=== PATIENT | male | born 1990 | race Caucasian/White ===

== ENCOUNTER → 2017-02-24 | Outpatient (CLI) | payer OTHER ==
--- NOTE | 2017-02-24 13:30 | DIAGNOSTIC IMAGING REPORT ---
BILATERAL LOWER EXTREMITY VENOUS DOPPLER HISTORY: PAIN IN RT LEG, acute right lower cavity swelling and pain. COMPARISON STUDY: None. FINDINGS: There is normal compressibility, flow, and augmentation within the right lower extremity deep venous system. IMPRESSION: No evidence of deep venous thrombosis within the right lower extremity. Electronically signed by: Damian Ruiz M.D. 02/24/2017 1:29 PM Dictated Date/Time: 02/24/2017 1:27 PM
== END | disposition home or self-care (01) ==
LOC: C.ULTR 12:58
PROVIDERS: ATTEND Student in an Organized Health Care Education/Training Program
DX: M79.604 Pain in right leg (principal)